=== PATIENT | female | born 1975 | race Caucasian/White ===

== ENCOUNTER 2024-07-10 16:43 | Emergency (ER) | payer OTHER, SELFPAY ==
[2024-07-10 17:13] VITALS: BP 130/91; PULSE 71; RESP 17; TEMP 36.6; O2SAT 99
--- NOTE | 2024-07-10 22:32 | ECG_ITS ---
Test Date: 2024-07-10 23:09:36 Measurements Intervals [place] Rate: 73 P: 38 NC: 150 QRS: -2 QRSD: 97 T: -7 QT: 361 QTc: 400 Interpretive Statements SINUS RHYTHM LOW QRS VOLTAGE IN PRECORDIAL LEADS [QRS DEFLECTION < 1.0 mV IN CHEST LEADS] No previous ECG available for comparison Electronically Signed On 07-11-2024 11:54:50 [employer] OPERATOR by Aliza Valdes
--- NOTE | 2024-07-10 22:55 | ED_ITS ---
HPI - Syncope General Chief Complaint: Syncope Stated Complaint: syncopal episode after a painful event Time Seen by Provider: 07/10/24 22:30 History of Present Illness HPI narrative: Patient is a 48-year-old female who presents to the emergency department this evening status post a vasovagal syncopal episode. 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 Patient states that while she was at work today she accidentally got her left thumb pinched between 2 boxes. This caused her to have a syncopal episode, however, patient states that she caught herself and sat down and did not fall or hit her head. States that this has happened so many times in the past to the point where she knows when it is coming and her reflex is to sit down immediately so she does not fall. Currently denying any symptoms including any chest pain, shortness of breath, nausea vomiting, abdominal pain, lightheadedness, dizziness, vision changes, focal weakness, numbness and tingling. There are no additional modifying, alleviating, or precipitating factors at this time. Review of Systems Review of Systems: All systems are reviewed and are negative unless stated otherwise in the HPI. Exam Narrative: General: Alert, awake, afebrile, in no acute distress. HEENT: PERRL, no rhinorrhea, no post nasal drip, oropharynx clear. Neck: Trachea midline, no JVD, no lymphadenopathy. Cardiovascular: Regular rate and rhythm, no murmurs, rubs or gallops, no peripheral edema. Respiratory: Clear to auscultation bilaterally, no tachypnea, no wheezing, no rhonchi, no rubs, no respiratory distress. Abdomen: Soft, nontender, nondistended, no rebound, no guarding, no peritoneal signs. Musculoskeletal: No joint swelling or deformity, normal muscle tone. Skin: No rashes or petechia, no signs of infection. Psychiatric: Alert and oriented, normal behavior and judgment for situation. Neurological: Alert and oriented to person, place, and time. Follows all commands. No focal deficits, speech is clear and fluent. Course Vital Signs Vital signs: Vital Signs Temperature 97.9 F 07/10/24 17:13 Pulse Rate 71 07/10/24 17:13 Respiratory Rate 17 07/10/24 17:13 Blood Pressure 130/91 H 07/10/24 17:13 Pulse Oximetry 99 07/10/24 17:13 Oxygen Delivery Room Air 07/10/24 17:13 Temperature 97.9 F 07/10/24 17:13 Pulse Rate 71 07/10/24 17:13 Respiratory Rate 17 07/10/24 17:13 Blood Pressure 130/91 H 07/10/24 17:13 Pulse Oximetry 99 07/10/24 17:13 Oxygen Delivery Room Air 07/10/24 17:13 MDM - Syncope MDM Narrative Medical decision making narrative: The patient was evaluated by myself in the emergency department. History is obtained from patient who is an independent historian and physical exam was performed. EKG was obtained which revealed sinus rhythm rate of 73 beats per minute, no evidence of acute ischemia. EKG was independently interpreted by me and is currently pending official cardiology read. Differential diagnosis considerations include vasovagal syncope, acute stress reaction. 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 I have evaluated and discussed social determinants of health with the patient that could potentially impact subsequent diagnosis and treatment plans. On repeat assessment of the patient, reevaluation revealed that the patient is doing well and is in no acute distress. Patient symptoms have improved since she arrived to our emergency department. Repeat vital signs were all reviewed and noted to be stable. Differential diagnosis and treatment plan were discussed with the patient at bedside. Patient agrees with discussion and after shared medical decision making agrees with discharge. All questions were answered to the patient's satisfaction. Patient will follow up with her PCP in 3-5 days. Patient was provided with strict return precautions and instructed to return to the emergency department if any new or worsening symptoms develop. The patient was discharged in stable condition. Discharge Plan Discharge Clinical Impression: Vasovagal syncope Patient Disposition: Home, Self-Care Condition: Improved Instructions: Antibiotic Form, Syncope (ED) Additional Instructions: Please follow-up with your family doctor within the next 3-5 days. Return to emergency department if any new or worsening symptoms develop. Patient Language: Macedonian Follow-up/Referrals: PHYSICIAN NOT ON STAFF,NONSTAFF [Primary Care Provider] - 3 Days Ryder Whitt MD [Physician] - 3 Days Time of Disposition: 22:56
[2024-07-10 23:25] VITALS: BP 126/82; PULSE 82; RESP 18; O2SAT 98
--- OUTSIDE RECORDS SUMMARY | 2024-07-11 06:10 | XMS_ITS | Clinical Summary ---
Author Organization [facility] [employer] [place] Address [address] [address] Care Team Providers Care Condominium Association Manager Name Role Phone Unavailable Primary Care Provider Unavailabl e Encounters Date Type Department Care Team Description 07/10/2024 External Device Data [facility] Provider, Abstract 07/08/2024 External Device Data [facility] Provider, Abstract 07/02/2024 External Device Data [facility] Provider, Abstract from Last 3 Months Immunizations Immunization Administration Dates Next Due INFLUENZA VACCINE TRIVALENT SPLIT VIRUS, (6 MOS UP), 0.5ML (PF), IM 03/26/2024 Social History Tobacco Use Types Packs/Day Years Used Date Smoking Tobacco: Never Assessed Comments Unknown Sex and Gender Information Value Date Recorded Sex Assigned at Not on file Legal Sex Female 2:26 PM CDT Gender Identity Not on file Sexual Orientation Not on file Plan of Treatment Health Maintenance Due Date Last Done Comments HEPATITIS B VACCINES (1 of 3 - 19+ 3-dose series) 09/16 CERVICAL CANCER SCREENING 2004 BREAST CANCER SCREENING 2014 PNEUMOCOCCAL VACCINE 0-64 YE ARS (2 of 2 - PPSV23 or PCV20) 02/19/2015 12/25/2014 COLORECTAL SCREENING 09/27/2019 Colorectal Cancer Screening 09/27/2019 FIT-DNA Q 3 years 09/27/2019 FIT/FOBT Q 1 year 09/27/2019 Flex Sig/CT Colonography Q 5 years 09/27/2019 DTAP/TDAP/TD VACCINES (2 - Tdap) 12/28/2024 12/29/19 15 INFLUENZA VACCINE Completed 03/26/2024
--- OUTSIDE RECORDS SUMMARY | 2024-07-11 06:10 | XMS_ITS | Encounter Summary ---
Author Organization [employer] Address [address] [place] [address] Care Team Providers Care Residential Case Manager Name Role Phone Unavailable Primary Care Provider Unavailabl e Encounter Details Date Type Department Care Team (Late st Contact Info) Description 07/08/2024 External Device Data [facility] Provider, Abstract NO ADDRESS ON FILE Social History Tobacco Use Types Packs/Day Years Used Date Smoking Tobacco: Never Assessed Comments Unknown Sex and Gender Information Value Date Recorded Sex Assigned at Not on file Legal Sex Female 2:26 PM CDT Gender Identity Not on file Sexual Orientation Not on file documented as of this encounter Plan of Treatment Not on file documented as of this encounter Visit Diagnoses Not on filedocumented in this encounter
--- OUTSIDE RECORDS SUMMARY | 2024-07-11 06:10 | XMS_ITS | Clinical Summary ---
Author Organization [facility] Address [address] [place] [address] Phone Care Team Providers Care Health Education Teacher Name Role Phone Unavailable Primary Care Provider Unavailabl e Allergies Active Allergy Reactions Criticality Noted Date Comments Other Unknown High 04/14/2015 Dander - High Jenna soap,Tide soap- medium Medications albuterol (PROVENTIL, VENTOLIN) (2.5 MG/3ML) 0.083% Nebulizer SolnIndications :Asthma with acute exacerbation, unspecified asthma severity 3 mL by Nebulization route every 4 hours as needed for Wheezing or Cough. 180 Vial 2 6 Active albuterol (VENTOLIN HFA) 108 (90 BASE) MCG/ACT Aerosol SolutionIndicat ions:Asthma with acute exacerbation, unspecified asthma severity take 2 Puffs by inhalation every 4 hours as needed for Wheezing or Cough. 8.5 g 2 7 Active Active Problems Problem Noted Date Diagnosed Date Asthma 04/14/2015 ADD (attention deficit disorder) 04/14/2015 Immunizations Immunization Administration Dates Next Due DTAP VACCINE 12/28/2014 Pneumococcal Vaccine - 13 Valent 12/25/2014 Social History Tobacco Use Types Packs/Day Years Used Date Smoking Tobacco: Never Alcohol Use Standard Drinks/Week Comments No 0 (1 standard drink = 0.6 oz pur e alcohol) Sexually Active Control Partners Comments Yes Comments No Sex and Gender Information Value Date Recorded Sex Assigned at Not on file Legal Sex Female 8:29 PM CDT Gender Identity Not on file Sexual Orientation Not on file Last Filed Vital Signs Vital Sign Reading Time Taken Comments Blood Pressure 110/62 03/24/2016 8:56 AM CDT Pulse 84 03/24/2016 8:56 AM CDT Temperature 37.4 ??C (99.4 ??F) 03/24/2016 8:56 AM CD T Respiratory Rate 16 03/24/2016 8:56 AM CDT Oxygen Saturation 99% 03/24/2016 8:56 AM CDT Inhaled Oxygen Concentration - - Weight 80.5 kg (177 lb 6.4 oz) 03/24/2016 8:56 A M CDT Height 160 cm (5' 3 ) 12/24/2015 9:02 AM CDT Body Mass Index 31.42 12/24/2015 9:02 AM CDT Plan of Treatment Health Maintenance Due Date Last Done Comments Hepatitis C Virus (HCV) Screening 1974 Hepatitis B Immunization (1 of 3 - 19+ 3-dose series) 1993 Pap Smear 09/27/1995 Cervical Cancer Screening (CCS) 2004 HPV/Cotest 2004 Discussion re Starting/Frequ ency of Mammograms 2014 Pneumococcal Immunization Co mbined (2 of 2 - PPSV23) 02/19/2015 12/25/2014 Colonoscopy 09/27/2019 Colorectal Cancer Screening 09/27/2019 Influenza Immunization (#1) 2024 SARS-COV-2 Immunization ( season) 2024 Cologuard 2024 Immunochemical Fecal Occult Blood 2024 Respiratory Syncytial Virus (RSV) Immunization (Adult) (1 - 1-dose 75+ series) 2049 DTaP/Tdap/Td Immunization Discontinued 12/28/2014 Meningococcal Immunization (ACWY) Aged Out No longer eligible based on patient's age to complete this topic Rotavirus Immunization Aged Out No lo nger eligible based on patient's age to complete this topic
== END 2024-07-10 23:25 | disposition home or self-care (01) ==
PROVIDERS: Emergency Provider Emergency Medicine
DX: R55 Syncope and collapse (principal)
CPT/HCPCS: 93005; 99283